=== PATIENT | male | born 1955 | race African-American/Black ===

== ENCOUNTER 2017-11-24 22:20 | Emergency (ER) | payer OTHER, SELFPAY ==
[~2017-11-24] VITALS: Ht 188 cm; Wt 68.0 kg
--- NOTE | 2017-11-24 22:31 | Emergency Room Report ---
History of Present Illness General Chief Complaint: Medical Clearance Source: Patient Present Illness HPI Is a 62-year-old male brought in by police for medical clearance. He told it showed that his feet hurt. Here he denies any complaint. Said that he no longer hurting. Denies any trauma. Allergies: Coded Allergies: UNABLE TO ASSESS (Unverified , 11/24/17) Patient History Past Medical History: see triage record, old chart reviewed Past Surgical History: other Pertinent Family History: none Social History: Denies: smoking Immunizations: other Reviewed Nursing Documentation: PMH: Agreed, PSxH: Agreed Review of Systems Eye: Denies: eye pain, blurred vision ENT: Denies: ear pain, nose congestion, throat swelling Respiratory: Denies: cough, shortness of breath Cardiovascular: Denies: chest pain, palpitations Gastrointestinal: Denies: abdominal pain, diarrhea, nausea, vomiting Musculoskeletal: Denies: back pain, joint pain Skin: Denies: rash Neurological: Denies: headache, numbness Endocrine: Denies: increased thirst, increased urine Hematologic/Lymphatic: Denies: easy bruising All Other Systems: negative except mentioned in HPI Physical Exam he refused vitals Sp02 EP Interpretation: reviewed, normal General Appearance: well appearing, no apparent distress, alert, other - Disheveled Head: normocephalic, atraumatic Eyes: bilateral eye PERRL, bilateral eye EOMI ENT: hearing grossly normal, normal pharynx Neck: full range of motion, supple, no meningismus Respiratory: chest non-tender, lungs clear, normal breath sounds Cardiovascular #1: regular rate, rhythm, no murmur Gastrointestinal: normal bowel sounds, non tender, no mass, no organomegaly, no bruit, non-distended Musculoskeletal: back normal, gait/station normal, normal range of motion Psychiatric: mood/affect normal Skin: warm/dry Medical Decision Making Diagnostic Impression: Primary Impression: Pain in both feet ER Course Patient complaining of feet pain. He refuse to let me look at his feet. We'll discharge home. Status: unchanged Disposition: D/C TO LAW ENFORCEMENT IN [facility] Condition: Stable Additional Instructions: Followup with your doctor as needed. Return if worse. BALTAZAR SCHMITZ M.D. Nov 24, 2017 22:31
[2017-11-24 22:35] VITALS: BP 0/0
== END 2017-11-24 23:00 ==
LOC: EMR 22:51
DX: M79.672 Pain in left foot (principal); M79.671 Pain in right foot
CPT/HCPCS: 99283